=== PATIENT | female | born 1940 | race Caucasian/White ===

== ENCOUNTER → 2017-11-03 | Outpatient (CLI) | payer OTHER, BC | LOC: RAD 11:29 | DX: M15.9 Polyosteoarthritis, unspecified (principal) ==

== ENCOUNTER 2020-02-05 09:02 | Emergency (ER) | payer OTHER, BC ==
[~2020-02-05] VITALS: Ht 157.5 cm; Wt 54.4 kg
[2020-02-05] MEDS ORDERED: MOBIC7.5 MG PO (10:03)
[2020-02-05] MEDS ORDERED: COZAAR100 MG PO (10:03)
[2020-02-05] MEDS ORDERED: TOPROL XL25 MG PO (10:03)
[2020-02-05] MEDS ORDERED: ASA81BEC PO (10:03)
[2020-02-05] MEDS ORDERED: SUPER THERAVIT1 EACH PO (10:04)
[2020-02-05] MEDS ORDERED: CALCIUM500 MG PO (10:04)
[2020-02-05] MEDS ORDERED: PRILOSEC10 MG PO (10:04)
[2020-02-05] MEDS ORDERED: CLARITIN10 M2 PO (10:04)
[2020-02-05 12:04] VITALS: BP 164/77
== END 2020-02-05 12:10 | disposition home or self-care (01) ==
LOC: ER 09:02
DX: S01.01XA Laceration without foreign body of scalp, initial encounter (principal); I10 Essential (primary) hypertension; K21.9 Gastro-esophageal reflux disease without esophagitis; I25.10 Atherosclerotic heart disease of native coronary artery without angina pectoris; Z79.899 Other long term (current) drug therapy; Z88.0 Allergy status to penicillin; Z79.82 Long term (current) use of aspirin; W18.39XA Other fall on same level, initial encounter; Y92.89 Other specified places as the place of occurrence of the external cause; Y93.89 Activity, other specified; Y99.8 Other external cause status